=== PATIENT | male | born 1975 | race Caucasian/White ===

== ENCOUNTER 2020-05-30 01:28 | Emergency (ER) | payer OTHER ==
[~2020-05-30] VITALS: Ht 172.7 cm; Wt 90.7 kg
--- NOTE | 2020-05-30 01:37 | NUR ---
KATHARINE FROM HOME C/O RLE SWELLING X2 WEEKS, SEEN AT OTHER ER 2 DAYS AGO R/O DVT. TO ER BED 11 AWAITING
[2020-05-30] MEDS ORDERED: CEPHALEXIN MONOHYDRATE 500 MG CAPSULE PO ONE ×2 (01:52→02:00)
[2020-05-30] MEDS ORDERED: SULFAMETH/TRIMETH 800/160 MG 1 UDTAB TABLET ONE (01:52)
[2020-05-30] MEDS ORDERED: SULFAMETH/TRIMETH 800/160 MG 1 UDTAB TABLET PO ONE (02:00)
--- NOTE | 2020-05-30 02:01 | NUR ---
Patient discharged to home in stable condition. Written and verbal after care instructions given. Patient verbalizes understanding of instruction.
[2020-05-30 02:10] VITALS: BP 120/81
== END 2020-05-30 02:25 | disposition home or self-care (01) ==
LOC: ER 01:28
DX: L03.115 Cellulitis of right lower limb (principal); L03.116 Cellulitis of left lower limb; E11.9 Type 2 diabetes mellitus without complications; Z98.890 Other specified postprocedural states